=== PATIENT | male | born 1975 | race Caucasian/White ===

== ENCOUNTER 2022-08-05 15:33 | Emergency (ER) | payer OTHER, SELFPAY ==
--- NOTE | ~2022-08-05 | CT_ITS ---
EXAMINATION: CT abdomen pelvis wo con DATE: 08/05/2022 18:21 INDICATION: Left flank pain TECHNIQUE: Computed tomography (CT) of the abdomen and pelvis was performed without intravenous contr ast. The dose-length product (DLP) was 276.33 mGy-cm. Automated exposure control and iterative recons truction technique were employed. COMPARISON: None FINDINGS: Minimal dependent atelectasis is present in the lung bases. The heart size is normal. The l iver, spleen, pancreas, gallbladder, and adrenal glands are normal. There is a 4 mm stone of the prox imal left ureter which causes mild left hydroureteronephrosis. No stones are identified in the kidney s. No pathologically enlarged abdominal or pelvic lymph nodes are identified. Colonic diverticulosis is present without evidence of diverticulitis. There is moderate lumbar spondylosis at L5-S1. IMPRESSION: 1. 4 mm stone of the proximal left ureter causing mild left hydroureteronephrosis. Reviewed, dictated and finalized at location F. N SORTER IMPRESSION: 1. 4 mm stone of the proximal left ureter causing mild left hydroureteronephros is.
[2022-08-05 15:42] VITALS: BP 143/109; PULSE 70; RESP 16; TEMP 36.6; O2SAT 100
--- NOTE | 2022-08-05 16:21 | ED.GENADULT ---
HPI - General Adult General Chief complaint: Abdominal Pain Stated complaint: lower back and left side pain Time Seen by Provider: 08/05/22 15:46 History of Present Illness HPI narrative: 46-year-old male presented to the emergency department for evaluation of left flank and left lower quadrant pain. Patient states at approximately 5 AM he had onset of left lower abdominal pain. Patient states over the course of the morning it did radiate to his back and down to his left testicle. Patient denies any prior history of kidney stones. Patient reports he did have some pain with urination. Patient reports approximately 20 years ago he had an exploratory laparotomy due to internal bleeding. No source of the bleeding was ever identified. Related Data Allergies Allergy/AdvReac Type Severity Reaction Status Date / Time No Known Allergies Allergy Verified 08/05/22 15:54 Review of Systems Review of Systems: CONSTITUTIONAL: Denies fever, chills, or sweats. EYES: Denies visual changes, redness, or discharge. ENT: Denies rhinorrhea, congestion, sore throat, or otalgia. CARDIOVASCULAR: Denies chest pain, palpitations, or edema. RESPIRATORY: Denies cough or dyspnea. GASTROINTESTINAL: See HPI GENITOURINARY: See HPI, some burning with urination SKIN: Denies rash or itching. MUSCULOSKELETAL: Denies back pain, joint pain, or myalgia. NEUROLOGIC: Denies headache, numbness, or weakness. PSYCHIATRIC: Denies anxiety or depression. [facility] Surgical History Surgical History (Updated 03/28/22 @ 10:46 by Chino Viveros MA) H/O plastic surgery (~1997) facial Family History Family History (Updated 03/28/22 @ 14:47 by Caprice Mcgraw PA-C) Grandparent Carcinoma of colon Skin cancer Social History Social History (Updated 03/28/22 @ 14:48 by Caprice Mcgraw PA-C) Smoking status: Never smoker Alcohol intake: current Alcohol use details: socially Substance use: never Exam Narrative: APPEARANCE: Well appearing, no pain, no distress, well-nourished. HEAD: normocephalic, atraumatic. EYES: PERRLA/EOMI, conjunctivae clear. NOSE: Normal no drainage EARS:TMS clear with good light reflex. THROAT: Pharynx clear, no exudate. NECK: Supple. No adenopathy, no masses. RESPIRATORY: Airway patent, respirations nonlabored. Clear to auscultation bilaterally, no rales, rhonchi, wheezing. CARDIOVASCULAR: Regular rate and rhythm without murmurs rubs or gallops. ABDOMINAL: Soft, nontender, nondistended, normal bowel sounds. Mild left-sided CVA tenderness to palpation MUSCULOSKELETAL: Moves all extremities. Strength/ROM intact, No edema, No calf tenderness. NEURO: Alert. Cranial nerves II through XII intact. Good gait. Good coordination SKIN: Warm, dry. Normal Color PSYCHIATRIC: Normal affect/mood. Course Course Emergency Course: Patient did feel improved with treatment. Patient was treated with IV normal saline, IV Zofran and IV Dilaudid. After the work-up patient was ordered IV Toradol. Patient does have a white count of 11.9 but patient is afebrile. UA shows no evidence of a urinary tract infection. Patient's creatinine is within normal limits. Differential diagnosis included UTI, pyelonephritis, ureteral calculi, diverticulitis. Patient CT scan did confirm a proximal ureteral calculi on the left. No other intra-abdominal pathology and UA is not consistent with a urinary tract infection. Patient was provided medications for pain control for home in addition to being started on Flomax. Patient was encouraged of close follow-up with urology was also educated on reasons to return to the emergency department. Vital Signs Vital signs: Vital Signs Temperature 97.8 F 08/05/22 15:42 Pulse Rate 70 08/05/22 15:42 Respiratory Rate 16 08/05/22 15:42 Blood Pressure 143/109 H 08/05/22 15:42 Pulse Oximetry 100 08/05/22 15:42 Temperature 97.8 F 08/05/22 15:42 Pulse Rate 70 08/05/22 15:42 Respiratory Rate 16 08/05/22 16:4
[2022-08-05] MEDS: SODIUM CHLORIDE 0.9% IV 1,000 ML 999 ML IV CONT (16:40)
[2022-08-05] MEDS: HYDROmorphone HCL INJ (*CRX) 1 MG/ML SYR IV PUSH (16:40)
[2022-08-05 16:45] VITALS: BP 122/74; RESP 16; O2SAT 96
[2022-08-05 17:40] LABS: Basophils Percent Auto 0.3 % (0.2-1.2); Eosinophils Percent Auto 0.3 % (0-4.4); Hematocrit 46.9 % (42.0-52.0); Hemoglobin 16.1 g/dL (14.0-18.0); Immature Granulocyte Absolute 0.05 K/mm3 (0.00-0.031); Immature Granulocyte Percent A 0.4 % (0-0.5); Lymphocytes Absolute Auto 0.68 K/mm3 (0.9-3.2); Lymphocytes Percent Auto 5.7 % (18.3-44.2); Mean Corpuscular HGB Conc 34.3 g/dl (32-36); Mean Corpuscular Hemoglobin 32.9 pg (26-34); Mean Corpuscular Volume 95.9 fl (80-100); Mean Platelet Volume 10.4 fl (7.4-10.4); Monocytes Absolute Auto 0.7 K/mm3 (0.1-0.6); Monocytes Percent Auto 5.6 % (2.6-8.5); Neutrophils Absolute Auto 10.5 K/mm3 (1.3-6.7); Neutrophils Percent Auto 87.7 % (45.5-73.1); Platelet Count Result 173 k/mm3 (150-375); Red Blood Count 4.89 M/mm3 (4.6-6.20); Red Cell Distribution Width 12.2 % (11.5-14.5); White Blood Count 11.9 K/mm3 (4.5-10.0)
[2022-08-05 17:52] LABS: Alanine Aminotransferase 20 U/L (6-50); Albumin Level 4.1 g/dL (3.5-5.1); Alkaline Phosphatase 59 U/L (38-126); Anion Gap 1 mmol/L (8-16); Aspartate Amino Transferase 21 U/L (17-59); Bilirubin,Total 1.9 mg/dL (0.2-1.3); Blood Urea Nitrogen 12 mg/dL (9-20); Calcium 8.4 mg/dL (8.4-10.2); Carbon Dioxide 31 mmol/L (22-30); Chloride 103 mmol/L (98-107); Estimated CRCL calculation 94 ml/min; Estimated Glomerular Filt Rate > 60; Glucose 109 mg/dL (65-110); Potassium 3.9 mmol/L (3.4-5.0); Sodium 135 mmol/L (137-145)
[2022-08-05 18:08] LABS: Appearance Urine Clear (Clear); Bilirubin Urine Negative (Negative); Blood Urine 2+ (Negative); Color Urine Yellow (Yellow); Glucose Urine UA Negative (Negative); Ketones Urine 1+ mg/dL (Negative); Leukocyte Esterase Ur Negative LEU/UL (Negative); Nitrate Urine Negative (Negative); Protein Urine Negative (Negative); Urobilinogen Urine 0.2 mg/dL (<2.0)
[2022-08-05 18:15] LABS: Mucus Urine Rare /lpf; RBC Urine >75 /hpf (0-2); WBC Urine 0-3 /hpf
[2022-08-05 18:16] LABS: Add Urine Microscopic? YES
[2022-08-05 18:48] VITALS: BP 128/79; O2SAT 98
[2022-08-05] MEDS: KETOROLAC 15 MG/ML VIAL (*BKC) IV PUSH (19:23)
[2022-08-05] MEDS: TAMSULOSIN HCL 0.4 MG CAPSULE PO (19:23)
[2022-08-05 19:32] VITALS: BP 131/77; PULSE 60; RESP 18; O2SAT 99
== END 2022-08-05 19:34 | disposition home or self-care (01) ==
PROVIDERS: Emergency Medicine; Emergency Provider Emergency Medicine; PCP Family Medicine Adolescent Medicine
DX: N13.2 Hydronephrosis with renal and ureteral calculous obstruction (principal)
CPT/HCPCS: 36415; 74176; 80053; 81001; 85025; 96361; 96374; 96375; 99284; A9270; J1170; J1885; J7030

== ENCOUNTER 2024-06-04 16:23 | Outpatient (CLI) | payer OTHER, SELFPAY ==
--- NOTE | ~2024-06-04 | XR_ITS ---
EXAM: XR shoulder RT min 2V DATE: 06/04/2024 16:48 HISTORY: M25.511 - Pain in right shoulder . COMPARISON: None available. FINDINGS: Normal mineralization. No fracture or dislocation. No lytic or blastic lesion. Moderate de generative change at the AC joint. Mild degenerative change at the glenohumeral joint. No erosion or periosteal change. Soft tissues within normal limits. 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 Reviewed, dictated and finalized at location K. HER GOODS ASSEMBLER
--- NOTE | ~2024-06-04 | XR_ITS ---
EXAM: XR cervical spine 4-5V DATE: 06/04/2024 16:48 HISTORY: M54.2 - Cervicalgia . COMPARISON: None available. FINDINGS: Craniocervical association and atlantoaxial joint are aligned. Mild degenerative change at the atlantodental interval. No prevertebral soft tissue swelling. 2 mm retrolisthesis at C3-4 that r educes in flexion. 1 mm retrolisthesis at C4-5 that worsens slightly in extension and reduces in flex ion. Vertebral body heights are maintained. Moderate disc space narrowing at C5-6 and C6-7 with signi ficant uncovertebral joint hypertrophy. Mild multilevel facet sclerosis. IMPRESSION: Grade 1 dynamic listheses at C3-4 and C4-5. Moderate degenerative disc disease at C5-6 an d C6-7. Mild multilevel facet arthropathy Reviewed, dictated and finalized at location K. TERER ROUGH IMPRESSION: Grade 1 dynamic listheses at C3-4 and C4-5. Moderate degenerative d isc disease at C5-6 and C6-7. Mild multilevel facet arthropathy
== END 2024-06-04 16:24 | disposition home or self-care (01) ==
PROVIDERS: PCP Family Medicine Adolescent Medicine; Visit Provider Anesthesiology Pain Medicine
DX: M19.011 Primary osteoarthritis, right shoulder (principal); M50.323 Other cervical disc degeneration at C6-C7 level
CPT/HCPCS: 72050; 73030

== ENCOUNTER 2024-06-24 14:29 | Outpatient (CLI) | payer OTHER, SELFPAY ==
--- NOTE | ~2024-06-24 | MR_ITS ---
EXAMINATION: MR cervical spine wo con DATE: 06/24/2024 16:29 INDICATION: Radiculopathy, cervical region. TECHNIQUE: Magnetic resonance imaging (MRI) of the cervical spine was performed without intravenous c ontrast. COMPARISON: Cervical spine radiographs 06/04/2024 FINDINGS: Alignment is normal. Vertebral body heights are normal. There is moderately decreased disc height at C5-C6 and C6-C7. The spinal cord signal intensity is normal. The following disc levels are specifically discussed: C2-C3: The disc does not extend beyond the endplate margin. There is no uncovertebral joint osteoarth ritis. There is mild bilateral facet joint osteoarthritis. There is no neural foraminal stenosis. The re is no central canal stenosis. C3-C4: There is a right central protrusion. There is mild bilateral uncovertebral joint osteoarthriti s. There is mild left facet joint osteoarthritis. There is mild bilateral neural foraminal stenosis. There is mild central canal stenosis. C4-C5: The disc is bulging. There is moderate bilateral uncovertebral joint osteoarthritis. There is mild bilateral facet joint osteoarthritis. There is mild bilateral neural foraminal stenosis. There i s mild central canal stenosis. C5-C6: The disc is bulging. There is severe bilateral uncovertebral joint osteoarthritis. There is mi ld bilateral facet joint osteoarthritis. There is mild right and moderate left neural foraminal steno sis. There is mild central canal stenosis with ventral indentation of the spinal cord. C6-C7: The disc is bulging. There is severe bilateral uncovertebral joint osteoarthritis. There is mi ld bilateral facet joint osteoarthritis. There is moderate right and mild left neural foraminal steno sis. There is mild central canal stenosis. C7-T1: There is a central protrusion. There is mild left uncovertebral joint osteoarthritis. There is severe bilateral facet joint osteoarthritis. There is mild bilateral neural foraminal stenosis. Ther e is mild central canal stenosis. IMPRESSION: 1. Moderate cervical spondylosis. Reviewed, dictated and finalized at location A. MANAGER
== END 2024-06-24 14:30 | disposition home or self-care (01) ==
LOC: MICIMG 14:29
PROVIDERS: PCP Family Medicine Adolescent Medicine; Visit Provider Anesthesiology Pain Medicine
DX: M47.22 Other spondylosis with radiculopathy, cervical region (principal)
CPT/HCPCS: 72141

== ENCOUNTER 2024-07-30 09:07 | Day surgery (SDC) | payer OTHER, SELFPAY ==
--- NOTE | ~2024-07-30 | XR_ITS ---
INTRAOPERATIVE FLUOROSCOPY: CLINICAL HISTORY: 48 years old Male; RIGHTWARD C7-T1 INTERLAMINAR EPIDURAL STEROID INJ PROCEDURE COMMENTS: Limited intraoperative fluoroscopy of the cervical spine was performed. CUMULATIVE DOSE: 2.03 mGy FLUOROSCOPY TIME: 12.7 seconds FINDINGS/IMPRESSION: Please refer to operative note for further details. Reviewed, dictated and finalized at location A. FURNITURE ASSEMBLER
--- NOTE | 2024-07-30 06:11 | P.OP_ITS ---
Procedure Note - Detailed Date of Procedure 07/30/24 Pre-op Diagnosis Cervicalgia, Radiculopathy, cervicalgia Post-op Diagnosis Same Procedure Performed rightward Cervical Interlaminar Epidural Steroid Injection at C7-T1 under Fluoroscopic Guidance and with Contrast Control. Surgeon Jl Brand MD Anesthesia Local Description of Procedure INFORMED CONSENT: Risks, benefits and alternatives to the procedure were discussed in detail with the patient who expressed explicit understanding and co nsent to proceed. Patient was informed verbally and in written form regarding the risks associated with the procedure including the low risk of serious infection, bleeding/bruising, allergic reaction, nerve or organ injury, paralysis, procedural site pain or discomfort, worsening pain and/or mobility, failure to treat and/or disfigurement. The patient expressed explicit understanding and consent to proceed. All materials required for the procedure were available prior to procedure start. Site and side was marked prior to procedure and confirmed in the presence of the patient. PROCEDURE IN DETAIL: The patient was brought to the procedural suite and placed in the prone position. Patient's head was positioned and stabilized with a ProneView pillow or equivalent. Patient was made comfortable with use of pillows under the chest, hips and ankles. Skin overlying the injection site was prepared broadly with ChloraPrep applicator and draped in a sterile manner. Aseptic technique was employed throughout. The endplates of the vertebral body at the site of interest were aligned in the AP view. Slight caudad tilt and ipsilateral oblique angulation was utilized to optimize visualization of the targeted posterior intervertebral foramen at C7-T1. Local anesthesia was established by infiltration with approximately 5 mL of 2% lidocaine via a 1-1/2 inch 27-gauge needle. A 20-gauge 4-inch Tuohy epidural needle was advanced intermittently until appropriate loss of resistance to air was identified via plastic loss of resistance syringe. Lateral view was used to confirm the appropriate positioning of the needle tip within the posterior epidural space. In the AP view, 2.0 mL of Omnipaque 300 contrast medium was injected after negative aspiration for CSF, blood or other bodily fluid, showing appropriate epidural spread of contrast without evidence of intravascular or intrathecal placement. After negative repeat aspiration for CSF, blood or other bodily fluid, A 4 mL solution containing 6 mg of betamethasone in sterile PF Normal Saline was injected after negative repeat aspiration. Appropriate spread of the injectate was confirmed with washout of previously injected contrast. No parasthesias were elicited. Needle was removed completely intact without difficulty. Images were saved and documented in the patient chart. Patient's skin was cleansed and sterile bandage applied. The patient tolerated the procedure well. The patient was transported to the recovery area in stable condition where they were observed for an appropriate amount of time prior to discharge, without evidence of complication. The patient was instructed to avoid excessive activity for the next 48 hours, including overhead work, reaching or extended device/computer usage. Showers o nly for 48 hours. They were instructed not to drive or operate heavy machinery for 24 hours. They are to monitor for severe headaches, fevers, chills, night sweats, erythema/swelling at the site or any other signs of infection, bleeding/bruising, bowel or bladder changes as well as new pain, weakness or numbness in the upper or lower extremity. Should they notice these changes, they are instructed to call our office immediately or report directly to the nearest Emergency Department if no answer or if after posted office hours. CONTRAST WASTED: 28mL Omnipaque 300. Complications No immediate complications Condition Stable Disposition Same day [facility] Billing Surgery - Charge Forward: Surgery Billing
--- NOTE | 2024-07-30 06:11 | WPDHPUPDATE1 ---
History and Physical Update Update Date/Time: 07/30/24 06:11 History and Physical has been reviewed, including an updated exam of the patient. There are NO changes in the patient's condition. Risks, benefits, and alternatives have been discussed and questions answered. Patient agrees to proceed with procedure.
[2024-07-30 10:34] VITALS: BP 144/93; PULSE 88; RESP 16; TEMP 36.9; O2SAT 100
[2024-07-30 10:36] VITALS: BMI 23.3
[2024-07-30 10:45] VITALS: BP 134/76; PULSE 83; RESP 13; O2SAT 98
[2024-07-30 10:51] VITALS: BP 124/70; PULSE 81; RESP 17; O2SAT 97
[2024-07-30] MEDS: LIDOCAINE 1% PF INJ 5 ML VIAL 2.5 ML INFILTRATE (10:52)
[2024-07-30] MEDS: BETAMETHASONE SODIUM PHOSPHATE PF INJ 6 MG/ML VIAL INFILTRATE (10:52)
[2024-07-30 10:55] VITALS: BP 141/93; PULSE 72; RESP 16; O2SAT 100
--- OUTSIDE RECORDS SUMMARY | 2024-08-01 17:17 | XMS_ITS | Clinical Summary ---
Author Organization [facility] Address [address] [place] [address] Care Team Providers Care Personal Caregiver Name Role Phone Hector Crooks MD Primary Care Prov ider Allergies No known active allergies Medications needle, disp, 25 gauge (MONOJECT HYPODERMIC POLYPROPYL) 25 gauge x 5/8 needle Use to inject testosterone weekly 20 each 3 10/04/19 18 Active syringe with needle, safety 3 mL 22 gauge x 1 1/2 syringe Use as directed every week. 12 each 3 09/10/19 22 Active doxycycline (ADOXA) 100 mg tablet Take 1 tablet (100 mg total) by mouth 2 (two) times a day 11/01/19 24 Active neomycin-polymyx in B-dexAMETHasone (MAXITROL) 3.5 mg/g-10,000 unit/g-0.1 % ointment APPLY SMALL AMOUNT TO LEFT EYE THREE TIMES DAILY FOR 7 DAYS 11/01/19 24 Active syringe with needle (BD Luer-Tian Syringe) 3 mL 23 gauge x 1 1/2 syringe Use to inject testosterone once a week 50 each 5 12/20/19 24 Active syringe with needle (BD Luer-Tian Syringe) 3 mL 21 gauge x 1 1/2 syringe USE DIRECTED EVERY WEEK 12 each 1 12/20/19 24 Active sildenafiL (VIAGRA) 100 mg tablet Take 1 tablet (100 mg total) by mouth as needed for erectile dysfunction 10 tablet 6 12/20/19 24 Active testosterone cypionate (DEPO-TESTOTERON E) 200 mg/mL injectionIndicat ions:Testicular hypofunction INJECT 0.5 ML INTRAMUSCULARLY EVERY 7 DAYS DIRECTED (SINGLE USE VIALS) 4 mL 2 06/27/20 24 Active Active Problems Problem Noted Date Diagnosed Date Other male erectile dysfunction 2021 Assessment & Plan (12/20/2023 4:18 PM CDT): Chronic, stable Continue sildenafil Assessment & Plan (11/15/2022 4:16 PM CDT): Continue sildenafil Assessment & Plan (2021 12:53 PM CDT): Start Viagra 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 Assessment & Plan (09/18/2018 10:47 AM CDT): Continue T replacement Side effects discussed Check CBC, CMP, PSA, Prolactin Will call if any concerns. Assessment & Plan (10/03/2017 12:19 PM CDT): Check T levels, cbc, lipid Adjust dose of T as indicated. Disease of pituitary gland 11/23/2013 Overview (10/14/2016): PITUITARY DISORDER NEC Resolved Problems Problem Noted Date Diagnosed Date Resolved Date Hypertrophy of breast 11/23/20132018 Overview (10/14/2016): HYPERTROPHY OF BREAST Surgical History Surgery Date Site/Laterality Comments ABDOMINAL SURGERY 07/10/2002 PLASTIC SURGERY 07/10/1997 Facial KIDNEY STONE SURGERY Medical History Medical History Date Comments Hx Other Medical empty sella Hx Other Medical abdominal surge ry for bleeding 2002 Family History Medical History Relation Name Comments Diabetes type II Other Family hist ory of Diabetes -Type 2; Relation Name Status Comments Other Social History Tobacco Use Types Packs/Day Years Used Date Smoking Tobacco: Never Smokeless Tobacco: Never Tobacco Cessation:Counseling Given: Not Answered Alcohol Use Standard Drinks/Week Comments Yes 0 (1 standard drink = 0.6 oz pur e alcohol) PHQ-2 Answer Date Recorded PHQ-2 Total Score (If total score is 3 or more points, staff should administer the PHQ-9) 0 10/13/2020 Sex and Gender Information Value Date Recorded Sex Assigned at Not on file 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 Gender Identity Not on file Sexual Orientation Not on file Obstetrics History Last Filed Vital Signs Vital Sign Reading Time Taken Comments Blood Pressure 104/66 12/20/2023 3:05 PM CDT Pulse 86 12/20/2023 3:05 PM CDT Temperature - - Respiratory Rate 18 12/20/2023 3:05 PM CDT Oxygen Saturation - - Inhaled Oxygen Concentration - - Weight 76.8 kg (169 lb 6.4 oz) 12/20/2023 3:05 P M CDT Height 177.8 cm (5' 10 ) 12/20/2023 3:05 PM CDT Body Mass Index 24.31 12/20/2023 3:05 PM CDT Plan of Treatment Health Maintenance Due Date Last Done Comments Colon Cancer Screening-Colonoscopy 1976 Hepatitis C Screening 1976 DTaP/Tdap/Td Vaccine (1 - Tdap) 11/17/1987 Hepatitis B Screening 1994 Regular Well Visit/Exam 18-64 1994 Depression Screening 10/13/2021 10/13/2020, 11/05/2019, 09/18/2018, Additional history exists Influenza Vaccine (#1) 2024 Pneumococcal vaccine <65 Aged Out No longer eligible based on patient's age to complete this topic Insurance [facility] HMO [facility] Care Teams Personal Caregiver Relationship Specialty Start Date End Date Hector Crooks MD [address] [place] [id number] PCP - General 10/07/16
--- OUTSIDE RECORDS SUMMARY | 2024-08-01 17:17 | XMS_ITS | Referral Summary ---
Author Organization 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
--- OUTSIDE RECORDS SUMMARY | 2024-08-01 17:17 | XMS_ITS | Clinical Summary ---
Author Organization 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
== END 2024-07-30 11:15 ==
LOC: ASC 10:18
PROVIDERS: PCP Family Medicine Adolescent Medicine; Visit Provider Anesthesiology Pain Medicine
PROC: (CPT 62321; principal; 2024-07-30 11:30)
DX: M54.12 Radiculopathy, cervical region (principal)
CPT/HCPCS: 62321; 99199